=== PATIENT | female | born 1960 | race Caucasian/White ===

== ENCOUNTER 2019-05-31 23:25 | Emergency (ER) | payer OTHER, SELFPAY ==
--- NOTE | ~2019-05-31 | CT_ITS ---
EXAMINATION: CT abdomen pelvis wo con DATE: 05/31/2019 23:51 INDICATION: Abdominal pain TECHNIQUE: Computed tomography (CT) of the abdomen and pelvis was performed without intravenous contr ast. Automated exposure control and iterative reconstruction technique were employed. The dose-length product was 174.22 mGy-cm. COMPARISON: None FINDINGS: Lung bases are clear. Heart size is normal. No pericardial or pleural effusion. Liver, gallbladder, s pleen, pancreas, bilateral adrenal glands and kidneys are normal. The common bile duct is dilated to 10-11 mm in maximal diameter. No evident obstructing stone or mass or intrahepatic biliary ductal dil ation. Normal gas-filled appendix. There are few scattered colonic diverticula without adjacent infla mmatory change to suggest diverticulitis. Small bowel is normal with no obstruction. Anteverted uteru s and decompressed bladder are unremarkable. Multiple phleboliths in the pelvis. No free intraperiton eal gas or fluid. No pathologically enlarged abdominal or pelvic lymphadenopathy. Small fat-containin g umbilical hernia. Lumbar spondylosis with multilevel mild to moderate disc height loss, severe bila teral facet osteoarthritis and grade 1 anterolisthesis of L3 with respect to both L2 and L4. IMPRESSION: 1. Dilation of the common bile duct to 10-11 mm in diameter but without evident obstructing stone/mas s or intrahepatic biliary ductal dilation. Correlate with liver function tests and consider further e valuation with MRCP. Reviewed, dictated and finalized at location A. 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 Dilation of the common bile duct to 10-11 mm in diameter but without evident obstructing stone/mass or intrahepatic biliary ductal dilation. Correlate with liver function tests and consider further evaluation with MRCP.
[2019-06-01] VITALS: BP 149/91; PULSE 93; RESP 18; TEMP 36.5; O2SAT 97
[2019-06-01 00:04] LABS: Hematocrit 37.7 % (35.0-49.0); Hemoglobin 12.7 g/dL (12.0-15.0); Mean Corpuscular HGB Conc 33.7 g/dL (32.0-36.0); Mean Corpuscular Hemoglobin 31.5 pg (27.0-31.0); Mean Corpuscular Volume 93.5 fL (78.0-102.0); Mean Platelet Volume 8.8 fl (9.2-11.8); Platelet Count Result 286 K/mm3 (150-420); Red Blood Count 4.03 M/mm3 (4.20-5.40); Red Cell Distribution Width 14.1 % (11.6-14.4); White Blood Count 13.5 K/mm3 (4.8-10.8)
[2019-06-01 00:07] LABS: Add Urine Microscopic? YES; Appearance Urine Clear (Clear); Bilirubin Urine 1+ (Negative); Blood Urine 2+ (Negative); Color Urine Yellow (Yellow); Glucose Urine UA Negative (Negative); Ketones Urine 2+ (Negative); Leukocyte Esterase Ur Negative (Negative); Nitrate Urine Negative (Negative); Protein Urine Trace (Negative); Specific Grav Ur >= 1.030 (1.010-1.020); Urobilinogen Urine 0.2 mg/dL (0.2-1.0)
[2019-06-01 00:15] LABS: Squamous Epithelial Cell Urine Rare /hpf (Few); WBC Urine 0-3 /hpf (0-3)
[2019-06-01 00:18] LABS: Bacteria Urine Trace /hpf
[2019-06-01 00:27] LABS: Alanine Aminotransferase 91 U/L (14-59); Albumin Level 4.5 g/dL (3.4-5.0); Alkaline Phosphatase 123 U/L (46-116); Anion Gap 16.9 mmol/L (7-16); Aspartate Amino Transferase 147 U/L (15-37); Bilirubin,Total 0.5 mg/dL (0.00-1.00); Blood Urea Nitrogen 18 mg/dL (7-18); Calcium 8.9 mg/dL (8.5-10.1); Carbon Dioxide 22 mmol/L (21-32); Chloride 101 mmol/L (98-108); Estimated Glomerular Filt Rate > 60; Glucose 98 mg/dL (70-99); Osmolality Calculated 283 mOsm/kg (285-295); Potassium 3.9 mmol/L (3.5-5.1); Sodium 136 mmol/L (136-145); Total Protein 8.3 g/dL (6.4-8.2)
[2019-06-01 00:30] LABS: Lipase 53 U/L (73-393)
[2019-06-01] MEDS: KETOROLAC (*BKC) 60 MG/2 ML VIAL IM (00:37)
[2019-06-01 00:56] VITALS: BP 135/82; PULSE 85; RESP 20; O2SAT 97
--- NOTE | 2019-06-01 00:58 | ED.BACK ---
HPI - Back Pain/Injury General Chief Complaint: Back Pain/Injury Stated Complaint: Lower abdominal pain and back pain Source: patient Mode of arrival: ambulatory History of Present Illness HPI Narrative: This 58-year-old female with history of chronic back pain and is on narcotic pain medication had increasing left lower back pain radiating into her lower abdomen on the left with no right upper quadrant pain or discomfort some nausea with no vomiting currently no dysuria no hematuria no fever chills no chest pain or shortness of breath. MD elicited complaint: back pain Onset (ago): week(s) Timing: intermittent Severity: moderate Pain scale (0-10): 6 Similar Symptoms Previously: Yes Quality: sharp and spasming Location: lumbar spine Radiation: abdomen Exacerbating factors: movement Relieving factors: immobilization Context: while lifting, turning/twisting and bending Associated symptoms: denies other symptoms Related Data Home Medications Medication Instructions Recorded Confirmed conjugated estrogens 1.25 mg PO DAILY 06/01/19 06/01/19 hydrocodone-acetaminophen [[place]] 1 tablet PO BID PRN 06/01/19 06/01/19 Allergies Allergy/AdvReac Type Severity Reaction Status Date / Time No Known Allergies Allergy Verified 05/01/19 09:35 Review of Systems Review of Systems: All systems reviewed & are unremarkable except as noted in HPI and below PMFSH Past Medical History Medical History Chronic low back pain Family History Family History Mother Hypertension Family history of congestive heart failure Sibling Family history of malignant neoplasm Other Cerebrovascular accident Social History Social History Smoking status: Heavy tobacco smoker Alcohol intake: never Gender identity (if verbalized by the patient): Female Exam Const: General: no acute distress Orientation/consciousness: patient oriented x3 HENMT: Head: normal to inspection Eyes: Conjunctivae: conjunctivae normal Pupils: Equal, round and reactive pupils present Neck: Neck: normal visual inspection Chest: Chest palpation & inspection: normal inspection of the chest Resp: Effort & Inspection: normal respiratory effort Cardio: Rate: regular rate Rhythm: regular rhythm GI: Auscultation: normal bowel sounds : General: Yes no CVA tenderness Back/Spine/Pelvis: Back: no CVA tenderness Other: L4 and 5 left paravertebral tenderness with palpation positive straight leg raising test Skin: General skin exam: normal color Rashes: no rashes Extrem: General: normal to inspection Course Vital Signs Vital signs: Vital Signs Temperature 36.5 C 06/01/19 00:00 Pulse Rate 93 06/01/19 00:00 Respiratory Rate 18 06/01/19 00:00 Blood Pressure 149/91 H 06/01/19 00:00 Pulse Oximetry 97 06/01/19 00:00 Temperature 36.5 C 06/01/19 00:00 Pulse Rate 85 06/01/19 00:56 Respiratory Rate 20 06/01/19 00:56 Blood Pressure 135/82 06/01/19 00:56 Pulse Oximetry 97 06/01/19 00:56 MDM - Back Pain/Injury Lab Data Attestation: I reviewed the patient's lab results. Result diagrams: 05/31/19 23:58 05/31/19 23:58 Labs: Lab Results 05/31/19 05/31/19 05/31/19 Range/Units 23:53 23:58 23:58 WBC 13.5 H (4.8-10.8) K/mm3 RBC 4.03 L (4.20-5.40) M/mm3 Hgb 12.7 (12.0-15.0) g/dL Hct 37.7 (35.0-49.0) % MCV 93.5 (78.0-102.0) fL MCH 31.5 H (27.0-31.0) pg MCHC 33.7 (32.0-36.0) g/dL RDW 14.1 (11.6-14.4) % Plt Count 286 (150-420) K/mm3 MPV 8.8 L (9.2-11.8) fl Sodium 136 (136-145) mmol/L Potassium 3.9 (3.5-5.1) mmol/L Chloride 101 (98-108) mmol/L Carbon Dioxide 22 (21-32) mmol/L Anion Gap 16.9 H (7-16) mmol/L BUN 18 (7-18) mg/dL Creatinine 0.93
== END 2019-06-01 01:09 | disposition home or self-care (01) ==
PROVIDERS: Emergency Provider Emergency Medicine
DX: S39.012A Strain of muscle, fascia and tendon of lower back, initial encounter (principal); N30.00 Acute cystitis without hematuria; F17.200 Nicotine dependence, unspecified, uncomplicated
CPT/HCPCS: 36415; 74176; 80053; 81001; 83690; 85027; 96372; 99283; 99284; J1885

== ENCOUNTER 2019-12-27 17:19 | Emergency (ER) | payer OTHER, SELFPAY ==
[2019-12-27 17:27] VITALS: BP 133/94; PULSE 102; RESP 16; TEMP 36.8; O2SAT 100
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
== END 2019-12-27 18:03 | disposition home or self-care (01) ==
PROVIDERS: Emergency Provider Nurse Practitioner Family; PCP Physician Assistant
DX: T65.891A Toxic effect of other specified substances, accidental (unintentional), initial encounter (principal); T22.511A Corrosion of first degree of right forearm, initial encounter; Y99.0 Civilian activity done for income or pay; F17.210 Nicotine dependence, cigarettes, uncomplicated
CPT/HCPCS: 99211; G0463

== ENCOUNTER 2020-04-23 16:37 | Outpatient (CLI) | payer OTHER, SELFPAY ==
[2020-04-23 17:15] LABS: SARS-CoV-2 Ag Negative (Negative)
== END 2020-04-23 16:38 | disposition home or self-care (01) ==
LOC: CHSLAB 16:40
PROVIDERS: PCP Physician Assistant; Visit Provider Physician Assistant
DX: Z20.828 Contact with and (suspected) exposure to other viral communicable diseases (principal)
CPT/HCPCS: 87426

== ENCOUNTER 2020-12-24 12:58 | Emergency (ER) | payer OTHER, SELFPAY ==
--- NOTE | ~2020-12-24 | XR_ITS ---
EXAMINATION: XR chest 2V EXAM DATE: 12/24/2020 13:28 INDICATION: Cough with diminished breath sounds. TECHNIQUE: Frontal and lateral projections of the chest obtained and reviewed. There is no prior jose luis dy for comparison. FINDINGS: The lungs are clear. There are no pleural effusions. The cardiomediastinal silhouette is within normal limits. There is no pneumothorax suspected. The bones and soft tissues are unremarkab le. IMPRESSION: No acute cardiopulmonary findings. Reviewed, dictated and finalized at location B.
[2020-12-24 13:02] VITALS: BP 126/61; PULSE 98; RESP 14; TEMP 37.2; O2SAT 99
--- NOTE | 2020-12-24 13:12 | ED.URI ---
HPI - URI/Sore Throat General Chief Complaint: Upper Respiratory Infection Stated Complaint: cough congestion and hurts to breathe Time Seen by Provider: 12/24/20 13:12 Source: patient and RN notes reviewed Mode of arrival: ambulatory Limitations: no limitations History of Present Illness HPI Narrative: 60-year-old female presents with concern for cough, chest congestion. Denies significant medical history, reports history of musculoskeletal injuries and surgeries, problems with gallbladder. Reports quit smoking 2 years ago after a 20-year habit of quarter pack per day. She reports 4-day history of cough with upper back pain/burning with coughing. Reports stuffy nose, fatigue, body aches, general malaise. She denies fever, ear pain, sore throat. Reports taking fadn-kjz-sqnuzpt cold medicines with little relief. She reports she has been asked for Covid. She denies any known sick contacts. 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 MD elicited complaint: cough Related Data Home Medications Medication Instructions Recorded Confirmed cyclobenzaprine [Flexeril] 10 mg PO HS 12/24/20 12/24/20 hydrocodone-acetaminophen [Vicodin] 1 tablet PO Q6H PRN 12/24/20 12/24/20 Allergies Allergy/AdvReac Type Severity Reaction Status Date / Time No Known Allergies Allergy Verified 12/24/20 13:15 Review of Systems Review of Systems: CONSTITUTIONAL: Reports malaise, fatigue. Denies chills, sweats, or fever. EYES: Denies visual changes, redness, or discharge. ENT: Reports rhinorrhea, congestion. Denies sinus pain, otalgia and sore throat. CARDIOVASCULAR: Denies chest pain, palpitations, or edema. RESPIRATORY: Reports cough, chest burning with coughing. Denies dyspnea. GASTROINTESTINAL: Denies abdominal pain, nausea, vomiting, diarrhea SKIN: Denies rash or itching. MUSCULOSKELETAL: Reports myalgia. Reports upper back pain NEUROLOGIC: Denies headache. All systems reviewed & are unremarkable except as noted in HPI and below PMFSH Past Medical History Medical History (Updated 12/24/20 @ 13:37 by Inez Mora NP) delivery delivered Chronic low back pain Surgical History Surgical History (Updated 12/27/19 @ 17:33 by RM Trejo) H/O section X4 History of knee surgery Family History Family History (Updated 12/28/19 @ 01:24 by RM Trejo) Mother Hypertension Family history of congestive heart failure Sibling Family history of malignant neoplasm Father , 12/12 at age 93, old age Early stage macular hole Old age Other Cerebrovascular accident Social History Social History (Updated 12/28/19 @ 01:21 by RM Trejo) Smoking packs per day: 0.25 Smoking cigarettes per day: 5.0 Years smoked: 20 Smoking pack-years: 5.00 Smoking status: Current every day smoker Tobacco type: cigarettes Second hand tobacco smoke exposure: No Alcohol intake: never Substance use: never Gender identity (if verbalized by the patient): Female Sexual Orientation (if Verbalized by the Patient): Straight or Heterosexual Comments At time of signature, agree with nursing past medical, surgical, social and family history. There is no relevant family history pertinent to the presenting complaint Exam Narrative: GENERAL: Well-appearing, well-nourished, and in no acute distress. HEAD: Normocephalic EYES: PERRLA, conjunctivae clear ENT: Nares clear. Mucous membranes moist. TM pearly shin with dull light reflex bilaterally; no tragal tenderness. Oropharynx not erythematous without lesions. Tonsils not enlarged and without exudate, no drooling, no hoarseness, no trismus, uvula midline. NECK: Supple. No lymphadenopathy CHEST: Clear to auscultation, diminished right upper lobe. No wheezing, rhonchi, rales, or stridor. No respiratory distress, speaks in full sentences. HEART: Regular rate and rhythm. No murmur heard. SKIN: Warm, dry, no rash.
[2020-12-25 19:18] LABS: SARS-CoV-2 RNA PCR Negative
== END 2020-12-24 13:49 | disposition home or self-care (01) ==
PROVIDERS: Emergency Provider Nurse Practitioner; PCP Physician Assistant
DX: J40 Bronchitis, not specified as acute or chronic (principal); Z20.822 Contact with and (suspected) exposure to COVID-19
CPT/HCPCS: 71046; 87426; 99213; C9803; G0463; U0003; U0005

== ENCOUNTER 2021-08-08 11:58 | Emergency (ER) | payer OTHER, SELFPAY ==
--- NOTE | ~2021-08-08 | XR_ITS ---
EXAMINATION: XR cervical spine 4-5V DATE: 08/08/2021 12:31 INDICATION: Right lateral neck pain. TECHNIQUE: 5 views of cervical spine were obtained. COMPARISON: None. FINDINGS: There is 2 mm retrolisthesis of C4 on C5, C5 on C6, and C6 on C7. Vertebral body heights ar e normal. There is severely decreased disc height at C4-C5 and C5-C6 and moderately decreased disc he ight at C6-C7 with endplate remodeling. There is multilevel uncovertebral joint osteoarthritis, sever e bilaterally from C4-C5 through C6-C7. There is multilevel mild facet joint osteoarthritis. There is mild central canal stenosis at C4-C5, C5-C6, and C6-C7. No prevertebral soft tissue swelling. IMPRESSION: 1. Severe cervical spondylosis. Reviewed, dictated and finalized at location A.
[2021-08-08 12:08] VITALS: BP 153/85; PULSE 85; RESP 18; TEMP 36.9; O2SAT 100
--- NOTE | 2021-08-08 12:18 | ED.NECK ---
HPI - Neck Pain/Injury General Chief Complaint: Neck Pain/Injury Stated Complaint: Neck Pain Time Seen by Provider: 08/08/21 12:18 Source: patient Mode of arrival: ambulatory Limitations: no limitations History of Present Illness HPI Narrative: 60-year-old female presented for complaint of neck pain for 10days, causing decreased ROM and headache. 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 States when she turned her head to put on seatbelt the pain started. Endorses chronic numbness and tingling to the right upper extremity due to pinched nerve and hx of injections to neck 20 years ago. Endorses chronic low back pain and multiple surgeries, and has taken hydrocodone which does not help. Related Data Home Medications Medication Instructions Recorded Confirmed hydrocodone-acetaminophen 1 tablet PO Q8H 08/08/21 08/08/21 Allergies Allergy/AdvReac Type Severity Reaction Status Date / Time No Known Allergies Allergy Verified 08/08/21 12:14 Review of Systems Review of Systems: CONSTITUTIONAL: Denies body aches, fever, chills, or sweats. EYES: Denies visual changes, redness, or discharge. ENT: Denies rhinorrhea, congestion, sore throat, or otalgia. CARDIOVASCULAR: Denies chest pain, palpitations, or edema. RESPIRATORY: Denies cough or dyspnea. GASTROINTESTINAL: Denies abdominal pain, nausea, vomiting, or diarrhea. GENITOURINARY: Denies dysuria or hematuria. SKIN: Denies rash, itching, or wounds. MUSCULOSKELETAL: Reports neck pain NEUROLOGIC: reports headache, numbness, tingling to RUE PSYCH: Denies depression or anxiety. All systems reviewed & are unremarkable except as noted in HPI and below PMFSH Past Medical History Medical History delivery delivered Chronic low back pain Surgical History Surgical History H/O section X4 History of knee surgery Family History Family History Mother Hypertension Family history of congestive heart failure Sibling Family history of malignant neoplasm Father , 12/12 at age 93, old age Early stage macular hole Old age Other Cerebrovascular accident Social History Social History Smoking packs per day: 0.25 Smoking cigarettes per day: 5.0 Years smoked: 20 Smoking pack-years: 5.00 Smoking status: Current every day smoker Tobacco type: cigarettes Second hand tobacco smoke exposure: No Alcohol intake: never Substance use: never Gender identity (if verbalized by the patient): Female Sexual Orientation (if Verbalized by the Patient): Straight or Heterosexual Comments At time of signature, I have reviewed and agree with nursing past medical, surgical, social and family history unless otherwise noted. Please see nursing chart for further information. There is no relevant family history pertinent to the presenting complaint Exam Narrative: GENERAL: Appears in pain HEAD: Normocephalic, atraumatic. EYES: EOMI. PERRLA. No redness or drainage. Conjunctivae normal. ENT: Mucous membranes pink and moist. No rhinorrhea. NECK: Pain with AROM, limited ROM in all directions, tender to cervical paraspinal muscles, no vertebral point tenderness. CHEST: No respiratory distress. Clear to auscultation. HEART: Regular rate and rhythm. No murmur appreciated. Normal peripheral pulses. ABDOMEN: Soft, nontender, nondistended, normal active bowel sounds. MUSCULOSKELETAL: No bony tenderness. EXTREMITIES: limited range of motion to upper ext's. 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 No edema. SKIN: Warm, dry, no rash. Capillary refill normal. Normal skin turgor. NEURO: No focal deficits. Alert and oriented x3. Gait steady. PSYCH: Normal affect. No signs of depression or anxiety. Cou
== END 2021-08-08 13:05 | disposition home or self-care (01) ==
PROVIDERS: Emergency Provider Nurse Practitioner Family; PCP Physician Assistant
DX: M54.2 Cervicalgia (principal); F17.210 Nicotine dependence, cigarettes, uncomplicated
CPT/HCPCS: 72050; 99213; G0463

== ENCOUNTER 2021-12-21 10:32 | Emergency (ER) | payer OTHER, SELFPAY ==
--- NOTE | ~2021-12-21 | CT_ITS ---
EXAMINATION: CT abdomen pelvis w con DATE: 12/21/2021 12:09 INDICATION: Abdominal pain, nausea and vomiting TECHNIQUE: Computed tomography (CT) of the abdomen and pelvis was performed with 100 mL Omnipaque-350 intravenous contrast. Automated exposure control and iterative reconstruction technique were employe d. The dose-length product was 180.80 mGy-cm. COMPARISON: 05/31/2019 FINDINGS: Mild discoid atelectasis in the right middle and bilateral lower lobes. Heart size is normal. No erich cardial or pleural effusion. Very small region of focal hepatic steatosis at the ligamentum teres. Co mmon bile duct is borderline dilated for age measuring up to 7 mm . There is mild central intrahepati c biliary ductal dilation. The distal common bile duct tapers gradually with no evident obstructing s tone or mass. Gallbladder is normal. Spleen, pancreas, bilateral adrenal glands and kidneys are jessica l. Bladder, anteverted uterus and bilateral adnexa are unremarkable. There are few scattered colonic diverticula without adjacent inflammatory change to suggest diverticulitis. Small bowel and appendix are normal. No free intraperitoneal gas or fluid. No pathologically enlarged abdominal or pelvic lymp hadenopathy. Severe lumbar spondylosis including mild grade 1 anterolisthesis L3 with respect to both L2 and L4. IMPRESSION: 1. Borderline dilation of the common bile duct and mild central intrahepatic biliary ductal dilation without evident obstructing stone or mass. Correlate with liver function tests. No other acute intra- abdominal/pelvic process. Reviewed, dictated and finalized at location A. IMPRESSION: 1. Borderline dilation of the common bile duct and mild central intrahepatic bi liary ductal dilation without evident obstructing stone or mass. Correlate with liver function tests. No other acute intra-abdominal/pelvic process.
--- NOTE | 2021-12-21 10:45 | ECG_ITS ---
Measurements Intervals [place] Rate: 70 P: 62 KS: 159 QRS: 54 QRSD: 84 T: 36 QT: 360 QTc: 391 Interpretive Statements SINUS RHYTHM NORMAL ELECTROCARDIOGRAM NO PREVIOUS ECG AVAILABLE FOR COMPARISON Electronically Signed On 12-21-2021 17:17:06 CDT by Taqueria Garcia M.D.
[2021-12-21 10:59] VITALS: BP 157/91; PULSE 78; RESP 20; TEMP 36.2; O2SAT 97
[2021-12-21 11:18] LABS: Basophils Absolute Auto 0.05 K/mm3 (0.00-0.10); Basophils Percent Auto 0.8 % (0.0-1.0); Eosinophils Absolute Auto 0.08 K/mm3 (0.02-0.50); Eosinophils Percent Auto 1.2 % (1.0-6.0); Hematocrit 39.4 % (35.0-49.0); Hemoglobin 12.9 g/dL (12.0-15.0); Immature Granulocyte Absolute 0.02 K/mm3 (0.00-0.00); Immature Granulocyte Percent A 0.3 % (0.0-0.0); Lymphocytes Absolute Auto 2.14 K/mm3 (1.10-4.50); Lymphocytes Percent Auto 32.4 % (18.0-42.0); Mean Corpuscular HGB Conc 32.7 g/dL (32.0-36.0); Mean Corpuscular Volume 94.7 fL (78.0-102.0); Mean Platelet Volume 9.3 fl (9.2-11.8); Monocytes Absolute Auto 0.45 K/mm3 (0.10-0.90); Monocytes Percent Auto 6.8 % (2.0-11.0); Neutrophils Absolute Auto 3.9 K/mm3 (1.7-7.2); Neutrophils Percent Auto 58.5 % (50.0-70.0); Platelet Count Result 248 K/mm3 (150-420); Red Blood Count 4.16 M/mm3 (4.20-5.40); Red Cell Distribution Width 13.1 % (11.6-14.4); White Blood Count 6.6 K/mm3 (4.8-10.8)
[2021-12-21] MEDS: SODIUM CHLORIDE 0.9% IV 1,000 ML 999 ML IV CONT (11:19)
[2021-12-21] MEDS: MORPHINE SULFATE (*CRX) 4 MG/ML INJ IV PUSH (11:20)
[2021-12-21] MEDS: ONDANSETRON INJ 4 MG/2 ML VIAL IV PUSH (11:20)
[2021-12-21 11:32] LABS: Partial Thromboplastin Time 25.4 SEC (23.90-30.70)
[2021-12-21 11:37] LABS: Alanine Aminotransferase 40 U/L (14-59); Albumin Level 3.5 g/dL (3.4-5.0); Alkaline Phosphatase 102 U/L (46-116); Anion Gap 8 mmol/L (8-16); Aspartate Amino Transferase 21 U/L (15-37); Bilirubin,Total 0.4 mg/dL (0.00-1.00); Blood Urea Nitrogen 7 mg/dL (7-18); Calcium 9.2 mg/dL (8.5-10.1); Carbon Dioxide 26 mmol/L (21-32); Chloride 100 mmol/L (98-108); Estimated Glomerular Filt Rate > 60; Glucose 98 mg/dL (70-99); Lipase 57 U/L (73-393); Osmolality Calculated 276 mOsm/kg (285-295); Potassium 3.8 mmol/L (3.5-5.1); Sodium 134 mmol/L (136-145); Total Protein 6.6 g/dL (6.4-8.2); Troponin I < 4.0 ng/L (0.00-60.4)
--- NOTE | 2021-12-21 12:28 | ED.ABDPAIN ---
HPI - Abdominal Pain General Chief Complaint: Abdominal Pain Stated Complaint: diverticylitis doctor referred Time Seen by Provider: 12/21/21 10:38 Source: patient Mode of arrival: ambulatory History of Present Illness HPI narrative: this is a 61-year-old female has a remote history of diverticulitis presents with one-week history of nausea vomiting and abdominal pain that has progressively gotten worse with some some constipation over the last 3 to 4 days, takes narcotic pain medicine for chronic back pain. Currently there is no fever chills no chest pain no shortness of breath. MD elicited complaint: abdominal pain Onset (ago): day(s) Pain Consistency: intermittent Location: diffuse Severity: moderate Quality: aching Related Data Home Medications Medication Instructions Recorded Confirmed hydrocodone 10 mg-acetaminophen 1 tablet PO Q8H 08/08/21 08/08/21 325 mg tablet Allergies Allergy/AdvReac Type Severity Reaction Status Date / Time No Known Allergies Allergy Verified 12/21/21 11:13 Review of Systems Review of Systems: All systems reviewed & are unremarkable except as noted in HPI and below PMFSH Past Medical History Medical History delivery delivered Chronic low back pain Surgical History Surgical History H/O section X4 History of knee surgery Family History Family History Mother Hypertension Family history of congestive heart failure Sibling Family history of malignant neoplasm Father , 12/12 at age 93, old age Early stage macular hole Old age Other Cerebrovascular accident Social History Social History Smoking packs per day: 0.25 Smoking cigarettes per day: 5.0 Years smoked: 20 Smoking pack-years: 5.00 Smoking status: Current every day smoker Tobacco type: cigarettes Second hand tobacco smoke exposure: No Alcohol intake: never Substance use: never Gender identity (if verbalized by the patient): Female Sexual Orientation (if Verbalized by the Patient): Straight or Heterosexual Exam Const: General: healthy appearing Limitations: no limitations HENMT: Head: normal to inspection Eyes: Conjunctivae: conjunctivae normal Neck: Neck: normal visual inspection, no lymphadenopathy and no meningeal signs Chest: Chest palpation & inspection: normal inspection of the chest Resp: Effort & Inspection: normal respiratory effort Auscultation: clear to auscultation bilaterally Cardio: Rate: regular rate Rhythm: regular rhythm GI: GI Palp: Yes Soft to palpation and Yes Tenderness to palpation present (GI) Auscultation: normal bowel sounds Back/Spine/Pelvis: Back: no CVA tenderness Skin: General skin exam: normal color Rashes: no rashes Wounds: no wounds Neuro: General: patient oriented x3 and moves all extremities Cranial nerves: Yes Nystagmus not present Speech: normal speech Extrem: General: normal to inspection and no clubbing, cyanosis or edema Psych: Mental Status: mental status grossly normal Affect: normal affect Course Course Emergency Course: Reassessment of patient her abdominal pain has improved as well as her nausea and vomiting, the patient had a CT scan that was reviewed with the patient blood work reviewed with patient patient also received IV fluids. Vital Signs Vital signs: Vital Signs Temperature 36.2 C L 12/21/21 10:59 Pulse Rate 78 12/21/21 10:59 Respiratory Rate 12/21/21 10:59 Blood Pressure 157/91 H 12/21/21 10:59 Pulse Oximetry 97 12/21/21 10:59 Oxygen Delivery Room Air 12/21/21 10:59 Temperature 36.2 C L 12/21/21 10:59 Pulse Rate 78 12/21/21 10:59 Respiratory Rate 20 12/21/21 10:59 Blood Pressure 157/91 H 12/21/21 1
[2021-12-21 12:55] VITALS: BP 150/87; PULSE 79; RESP 20; TEMP 36.7; O2SAT 96
== END 2021-12-21 12:58 | disposition home or self-care (01) ==
PROVIDERS: Emergency Provider Emergency Medicine; PCP Physician Assistant
DX: R10.84 Generalized abdominal pain (principal); R11.2 Nausea with vomiting, unspecified
CPT/HCPCS: 36415; 74177; 80053; 83690; 84484; 85025; 85730; 93005; 96361; 96374; 96375; 99284; J2270; J2405; J7030; Q9967

== ENCOUNTER 2022-01-01 14:50 | Emergency (ER) | payer OTHER, SELFPAY ==
[2022-01-01 14:55] VITALS: BP 154/78; PULSE 75; RESP 18; TEMP 37.2; O2SAT 99
--- NOTE | 2022-01-01 15:18 | ED.URI ---
HPI - URI/Sore Throat General Chief Complaint: Upper Respiratory Infection Stated Complaint: sore throat Time Seen by Provider: 01/01/22 15:18 History of Present Illness HPI Narrative: 60-year-old female presented for complaint of sore throat, headache, and fatigue onset yesterday. Endorses this morning while brushing her teeth she noticed spots on her tongue. She denies fever, cough, shortness of breath or vomiting. She quit smoking on 12/18/2021. She has not taken anything for symptoms. Related Data Home Medications Medication Instructions Recorded Confirmed hydrocodone 10 mg-acetaminophen 1 tablet PO Q8H 08/08/21 01/01/22 325 mg tablet meloxicam 15 mg tablet 15 mg PO DAILY 01/01/22 01/01/22 varenicline 1 mg tablet See Rx Instructions .Route .COMPLEX 01/01/22 01/01/22 Allergies Allergy/AdvReac Type Severity Reaction Status Date / Time No Known Allergies Allergy Verified 12/21/21 11:13 Review of Systems Review of Systems: CONSTITUTIONAL: Denies body aches, fever, chills, or sweats. EYES: Denies visual changes, redness, or discharge. ENT: Denies rhinorrhea, congestion, or otalgia. CARDIOVASCULAR: Denies chest pain, palpitations, or edema. RESPIRATORY: Denies dyspnea. GASTROINTESTINAL: Denies abdominal pain, nausea, vomiting, or diarrhea. SKIN: Denies rash, itching, or wounds. [facility] Past Medical History Medical History delivery delivered Chronic low back pain Surgical History Surgical History H/O section X4 History of knee surgery Family History Family History Mother Hypertension Family history of congestive heart failure Sibling Family history of malignant neoplasm Father , 12/12 at age 93, old age Early stage macular hole Old age Other Cerebrovascular accident Social History Social History Smoking packs per day: 0.25 Smoking cigarettes per day: 5.0 Years smoked: 20 Smoking pack-years: 5.00 Smoking status: Current every day smoker Tobacco type: cigarettes Second hand tobacco smoke exposure: No Alcohol intake: never Substance use: never Gender identity (if verbalized by the patient): Female Sexual Orientation (if Verbalized by the Patient): Straight or Heterosexual Exam Narrative: GENERAL: well-appearing EYES: conjunctivae clear ENT: Mucous membranes moist. distal 1/4 of tongue with white irregular flat patches. TMs pearly shin with normal light reflex bilaterally; no tragal tenderness. Oropharynx erythematous without lesions. No drooling, no hoarseness, no trismus, uvula midline. No tripod positioning, hot potato voice, or soft palate swelling. NECK: Supple. No lymphadenopathy CHEST: Clear to auscultation, breath sounds equal. No respiratory distress, speaks in full sentences. HEART: Regular rate and rhythm. No murmur heard. SKIN: Warm, dry, no rash. NEURO: Alert and oriented x3. Course Course Emergency Course: Patient is aware of diagnosis, understands and agrees to treatment plan. Anticipatory guidance given. Patient agrees to follow-up as directed and is aware of reasons to seek care at the emergency department. Portions of this record may have been created with voice recognition software Level of Care: Express Care Visit Vital Signs Vital signs: Vital Signs Temperature 98.9 F 01/01/22 14:55 Pulse Rate 75 01/01/22 14:55 Respiratory Rate 18 01/01/22 14:55 Blood Pressure 154/78 H 01/01/22 14:55 Pulse Oximetry 99 01/01/22 14:55 Oxygen Delivery Room Air 01/01/22 14:55 Temperature 98.9 F 01/01/22 14:55 Pulse Rate 75 01/01/22 14:55 Respiratory Rate 18 01/01/22 14:55 Blood Pressure 154/78 H 01/01/22 14:55 Pulse Oximetry 99 01/01/22 14
== END 2022-01-01 15:45 | disposition home or self-care (01) ==
PROVIDERS: Emergency Provider Nurse Practitioner Family; PCP Physician Assistant
DX: J06.9 Acute upper respiratory infection, unspecified (principal); Z20.822 Contact with and (suspected) exposure to COVID-19; Z87.891 Personal history of nicotine dependence
CPT/HCPCS: 87081; 87426; 87880; 99213; C9803; G0463

== ENCOUNTER 2023-01-15 09:38 | Emergency (ER) | payer OTHER, SELFPAY ==
[2023-01-15 10:03] VITALS: BP 125/74; PULSE 96; TEMP 36.6; O2SAT 100
[2023-01-15 10:06] VITALS: RESP 16
--- NOTE | 2023-01-15 10:19 | ED.BACK ---
HPI - Back Pain/Injury General Chief Complaint: Back Pain/Injury Stated Complaint: back pain Time Seen by Provider: 01/15/23 09:44 Source: patient Mode of arrival: ambulatory Limitations: no limitations History of Present Illness HPI Narrative: 62-year-old female presents to [facility] with complaints of right lower back pain radiating to her right leg for the past 4 days. 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 Patient has been resting, taking Aleve and Tylenol with minimal relief. Patient reports intermittent tingling to her toes. Patient reports long history of chronic back pain and has seen pain management in the past. Patient reports that she has had and 9 knee surgeries in the past. MD elicited complaint: back pain Pertinent past history: prior back pain Onset (ago): day(s) (4) Similar Symptoms Previously: Yes Quality: dull Location: right lower back Radiation: right upper leg Associated symptoms: denies other symptoms Treatments prior to arrival: NSAIDS Related Data Allergies Allergy/AdvReac Type Severity Reaction Status Date / Time No Known Allergies Allergy Verified 12/21/21 11:13 Review of Systems Constitutional: Constitutional: Denies chills, Denies fatigue, Denies fever(s) and Denies weakness ENT: Denies vertigo and Denies dizziness Cardiovascular: Cardiovascular: Denies chest pain Respiratory: Respiratory: Denies cough, Denies dyspnea and Denies wheezing Gastrointestinal: Gastrointestinal: Denies diarrhea, Denies nausea and Denies vomiting Genitourinary: Genitourinary: Denies hematuria, Denies dysuria and Denies flank pain Musculoskeletal: Musculoskeletal: Reports back pain, Denies myalgias and Denies joint swelling Integumentary/Breasts: Skin/Breast: Denies pruritus and Denies rash Neurologic: Denies dizziness, Denies syncope and Denies headache(s) [facility] Past Medical History Medical History delivery delivered Chronic low back pain Surgical History Surgical History H/O section X4 History of knee surgery Family History Family History Mother Hypertension Family history of congestive heart failure Sibling Family history of malignant neoplasm Father , 12/12 at age 93, old age Early stage macular hole Old age Other Cerebrovascular accident Social History Social History Smoking packs per day: 0.25 Smoking cigarettes per day: 5.0 Years smoked: 20 Smoking pack-years: 5.00 Smoking status: Current every day smoker Tobacco type: cigarettes Second hand tobacco smoke exposure: No Alcohol intake: never Substance use: never Living arrangements: with family Occupation/Education: occupation Gender identity (if verbalized by the patient): Female Sexual Orientation (if Verbalized by the Patient): Straight or Heterosexual Comments At time of signature, I agree with nursing past medical, surgical, social and family history. There is no relevant family history pertinent to the presenting complaint. Exam Const: General: healthy appearing and no acute distress Nutritional Appearance: well nourished Orientation/consciousness: patient oriented x3 Limitations: no limitations HENMT: Head: normal to inspection Eyes: Conjunctivae: conjunctivae normal Neck: Neck: normal visual inspection Resp: Effort & Inspection: normal respiratory effort and not labored Auscultation: clear to auscultation bilaterally, no crackles, no rales, no rhonchi and no wheezes Cardio: Rate: regular rate Rhythm: regular rhythm Heart sounds: no murmurs GI: GI Palp: Yes Soft to pal
== END 2023-01-15 10:30 | disposition home or self-care (01) ==
PROVIDERS: Emergency Provider Nurse Practitioner Family; PCP Physician Assistant
DX: M54.41 Lumbago with sciatica, right side (principal); F17.210 Nicotine dependence, cigarettes, uncomplicated
CPT/HCPCS: 99213; G0463

== ENCOUNTER 2023-07-04 19:27 | Emergency (ER) | payer OTHER, SELFPAY ==
--- NOTE | ~2023-07-04 | XR_ITS ---
EXAM: XR shoulder RT min 2V DATE: 07/04/2023 20:18 HISTORY: rt shoulder pain, injury . COMPARISON: 03/04/2010. FINDINGS: Decreased mineralization. No fracture or dislocation. No lytic or blastic lesion. Severe a cromioclavicular and glenohumeral osteoarthritis. No erosion or periosteal change. Soft tissues withi n normal limits. IMPRESSION: No acute osseous finding in the right shoulder. Reviewed, dictated and finalized at location K.
--- NOTE | 2023-07-04 19:30 | ED.UPPEXIN ---
HPI - Extremity Injury (Upper) General Chief Complaint: Extremity Injury, Upper Stated Complaint: Right Shoulder Pain Time Seen by Provider: 07/04/23 19:31 Source: patient Mode of arrival: ambulatory Limitations: no limitations History of Present Illness HPI narrative: Alpa is a 62-year-old female patient presenting to the clinic today with complaints right shoulder pain x2 days. She reports shoulder pain started on Tuesday when she was reaching to put on her seatbelt she felt a pop and some grinding sensation in the right shoulder. She feels as though her shoulder may be dislocated. Related Data Allergies Allergy/AdvReac Type Severity Reaction Status Date / Time No Known Allergies Allergy Verified 12/21/21 11:13 Review of Systems Review of Systems: Pertinent positives per HPI. Patient denies any fever, chills, rash, headache, visual changes, dizziness, cough, shortness of breath, chest pain, palpitations, nausea, vomiting, diarrhea, constipation, abdominal pain, or any urinary issues. [facility] Past Medical History Medical History delivery delivered Chronic low back pain Surgical History Surgical History H/O section X4 History of knee surgery Family History Family History Mother Hypertension Family history of congestive heart failure Sibling Family history of malignant neoplasm Father , 12/12 at age 93, old age Early stage macular hole Old age Other Cerebrovascular accident Social History Social History Smoking packs per day: 0.25 Smoking cigarettes per day: 5.0 Years smoked: 20 Smoking pack-years: 5.00 Smoking status: Current every day smoker Tobacco type: cigarettes Second hand tobacco smoke exposure: No Alcohol intake: never Substance use: never Living arrangements: with family Occupation/Education: occupation Gender identity (if verbalized by the patient): Female Sexual Orientation (if Verbalized by the Patient): Straight or Heterosexual Comments At the time of my signature, I reviewed and agree with the nursing past medical, surgical, social, and family history. There is no relevant family history pertinent to the patient complaint. Exam Narrative: General: Well-developed, well nourished, in no apparent distress Head: Normocephalic, atraumatic. Cardio: Regular rate and rhythm, s1 and s2 normal, no murmur appreciated. Resp: Clear to auscultation bilaterally, no rhonchi, rales, wheezing or rubs. Musculoskeletal: No deformity, tender to palpation over the anterior shoulder, pain with empty can and full can test over the anterior shoulder-over the supraspinatus tendon, unable to lift arm above head without significant pain, Shen test positive, muscle strength strong and equal, peripheral pulse strong, no edema, no cyanosis, normal gait and station Course Course Emergency Course: Portions of this record may have been created with voice recognition software. Level of Care: Express Care Visit Vital Signs Vital signs: Vital signs reviewed MDM - Extremity Injury (Upper) MDM Narrative Medical decision making narrative: At the time of visit patient is resting comfortably on the exam table. Patient appears to be nontoxic. Diagnostics: Right shoulder x-ray was performed. X-ray shows severe AC joint and glenohumeral osteoarthritis. No fracture or malalignment Plan: I suspect patient has a supraspinatus sprain/osteoarthritis of the right shoulder. Will place patient on Medrol Dosepak. Arm sling was given. Supportive measures were discussed with the patient and they voiced understanding discharge instructions and agrees to treatment plan. Return precautions reviewed Differenti
[2023-07-04 19:45] VITALS: BP 165/75; PULSE 85; RESP 20; TEMP 36.9; O2SAT 98
== END 2023-07-04 20:56 | disposition home or self-care (01) ==
PROVIDERS: Emergency Provider Nurse Practitioner Family
DX: M19.011 Primary osteoarthritis, right shoulder (principal); S46.911A Strain of unspecified muscle, fascia and tendon at shoulder and upper arm level, right arm, initial encounter; X50.9XXA Other and unspecified overexertion or strenuous movements or postures, initial encounter; F17.210 Nicotine dependence, cigarettes, uncomplicated
CPT/HCPCS: 73030; 99213; A4565; G0463

== ENCOUNTER 2023-09-02 12:16 | Emergency (ER) | payer OTHER, SELFPAY ==
--- NOTE | ~2023-09-02 | XR_ITS ---
EXAMINATION: XR abdomen/kub 1V DATE: 09/02/2023 13:18 INDICATION: Left lower abdominal and flank pain. TECHNIQUE: A supine view of the abdomen was obtained. COMPARISON: CT abdomen and pelvis 12/21/2021 FINDINGS: There are no dilated loops of bowel. There is a small volume of stool in the colon. Calcifi cations in the pelvis are likely phleboliths. IMPRESSION: 1. Normal bowel gas pattern. Reviewed, dictated and finalized at location A.
[2023-09-02 12:21] VITALS: BP 143/80; PULSE 125; RESP 18; TEMP 37.4; O2SAT 98
--- NOTE | 2023-09-02 12:23 | PC.NURSE ---
in br to obtain ua spec.
--- NOTE | 2023-09-02 12:33 | ED.BACK ---
HPI - Back Pain/Injury General Chief Complaint: Back Pain/Injury Stated Complaint: Back and left side groin pain Time Seen by Provider: 09/02/23 12:33 Source: patient, RN notes reviewed and old records reviewed Mode of arrival: ambulatory Limitations: no limitations History of Present Illness HPI Narrative: 62 year old female who prsents to express care with complaints of left back pain starting suddenly on Tuesday and today radiating around to her left lower abdomen. Patient reports that she has had back pain before and also had back surgery and this pain is different than any prrevious episodes of her back. Patient denies any burning or pain with urination, denies any urinary frequency or any urgency with her urination.Patient reports that she has been having increased pain since last night.Patient states that it hurts her abdomen more to sit. MD elicited complaint: other (left sided back pain radiating to left lower abdominal quadrant) Onset (ago): day(s) (2) Pain scale (0-10): 5 Quality: sharp and aching Treatments prior to arrival: NSAIDS and acetaminophen Related Data Home Medications Medication Instructions Recorded Confirmed No Home Medications 09/02/23 09/02/23 Allergies Allergy/AdvReac Type Severity Reaction Status Date / Time No Known Allergies Allergy Verified 09/02/23 12:22 Review of Systems Review of Systems: CONSTITUTIONAL: Denies fever, chills, or sweats. ENT: Denies rhinorrhea, congestion, sore throat, or otalgia. CARDIOVASCULAR: Denies chest pain, palpitations, or edema. RESPIRATORY: Denies cough or dyspnea. GASTROINTESTINAL: Reports pain from her left lower back radiating to her left lower abdomen denies any nausea, vomiting or diarrhea. GENITOURINARY: Denies dysuria or hematuria. SKIN: Denies rash or itching. MUSCULOSKELETAL: reports left lower back pain, joint pain, or myalgia. NEUROLOGIC: Denies headache, numbness, or weakness. All systems reviewed & are unremarkable except as noted in HPI and below PMFSH Past Medical History Medical History delivery delivered Chronic low back pain Surgical History Surgical History (Updated 09/04/23 @ 00:13 by Klaudia Sandoval NP) H/O section X4 H/O total knee replacement r-knee History of back surgery History of knee surgery 9 right knee surgeries Family History Family History Mother Hypertension Family history of congestive heart failure Sibling Family history of malignant neoplasm Father , 12/12 at age 93, old age Early stage macular hole Old age Daughter , of cancer No problems noted. Other Cerebrovascular accident Social History Social History Smoking packs per day: 0.25 Smoking cigarettes per day: 5.0 Years smoked: 20 Smoking pack-years: 5.00 Smoking status: Current every day smoker Tobacco type: cigarettes Second hand tobacco smoke exposure: No Alcohol intake: never Substance use: never Substance use type: does not use Do You Feel Safe in your Home?: Yes Lack of Transportation: No Lack of Food: Never True Current Housing: I Have Housing Concerned About Future Housing: No Difficulty Paying Gas/Electric Bills: No Difficulty Paying for Meds: No Currently Unemployed: No Education: High School Diploma/GED Difficulty w/ Childcare or Family Care: No Living arrangements: with family Occupation/Education: occupation Gender identity (if verbalized by the patient): Female Sexual Orientation (if Verbalized by the Patient): Straight or Heterosexual Comments At time of signature, agree with nursing past medical, surgical, social and family history. There is no relevant family history pertinent to the presenting complaint Exam Narrative: GENER
== END 2023-09-02 14:00 | disposition short-term general hospital (02) ==
PROVIDERS: Emergency Provider Registered Nurse
DX: R10.9 Unspecified abdominal pain (principal); R10.32 Left lower quadrant pain; F17.210 Nicotine dependence, cigarettes, uncomplicated; Z96.651 Presence of right artificial knee joint
CPT/HCPCS: 74018; 81003; 87086; 99213; G0463

== ENCOUNTER 2023-09-25 12:59 | Emergency (ER) | payer OTHER, SELFPAY ==
--- NOTE | ~2023-09-25 | XR_ITS ---
XR shoulder LT min 2V 09/25/2023 13:42 Indication: Left shoulder pain Procedure: 4 views left shoulder Comparison: No prior studies for comparison. Findings: There is moderate-severe polyarticular osteoarthritis of the left shoulder. No fracture or traumatic malalignment. No significant soft tissue abnormality. Impression: 1: Moderate-severe polyarticular osteoarthritis. Reviewed, dictated and finalized at location B. Impression: 1: Moderate-severe polyarticular osteoarthritis.
[2023-09-25 13:18] VITALS: BP 139/93; PULSE 93; RESP 18; TEMP 36.9; O2SAT 97
--- NOTE | 2023-09-25 13:19 | ED.UPPEXIN ---
HPI - Extremity Injury (Upper) General Chief Complaint: Extremity Injury, Upper Stated Complaint: Left shoulder pain Source: patient Mode of arrival: ambulatory Limitations: no limitations History of Present Illness HPI narrative: 62 y/o female presented for c/o left shoulder pain x2 days. Endorses injury while at work, says she raised the arm over head pushing a box onto a shelf, when she felt a pop. Has continued to have pain to the front of the shoulder to bicep since. Described as a pulling, rates pain 9/10, endorses limited range of motion at the shoulder. denies numbness, tingling, weakness of left arm. Patient has used tylenol, ibuprofen, and ice. Related Data Allergies Allergy/AdvReac Type Severity Reaction Status Date / Time No Known Allergies Allergy Verified 09/25/23 13:27 Review of Systems Review of Systems: CONSTITUTIONAL: Denies body aches, fever, chills CARDIOVASCULAR: Denies chest pain, palpitations, or edema. RESPIRATORY: Denies cough or dyspnea. SKIN: Denies rash, itching, or wounds. MUSCULOSKELETAL: reports left shoulder pain NEUROLOGIC: Denies headache, numbness, tingling, or weakness. PSYCH: Denies depression or anxiety. All systems reviewed & are unremarkable except as noted in HPI and below PMFSH Past Medical History Medical History delivery delivered Chronic low back pain Surgical History Surgical History H/O section X4 H/O total knee replacement r-knee History of back surgery History of knee surgery 9 right knee surgeries Family History Family History Mother Hypertension Family history of congestive heart failure Sibling Family history of malignant neoplasm Father , 12/12 at age 93, old age Early stage macular hole Old age Daughter , of cancer No problems noted. Other Cerebrovascular accident Social History Social History Smoking packs per day: 0.25 Smoking cigarettes per day: 5.0 Years smoked: 20 Smoking pack-years: 5.00 Smoking status: Current every day smoker Tobacco type: cigarettes Second hand tobacco smoke exposure: No Alcohol intake: never Substance use: never Substance use type: does not use Do You Feel Safe in your Home?: Yes Lack of Transportation: No Lack of Food: Never True Current Housing: I Have Housing Concerned About Future Housing: No Difficulty Paying Gas/Electric Bills: No Difficulty Paying for Meds: No Currently Unemployed: No Education: High School Diploma/GED Difficulty w/ Childcare or Family Care: No Living arrangements: with family Occupation/Education: occupation Gender identity (if verbalized by the patient): Female Sexual Orientation (if Verbalized by the Patient): Straight or Heterosexual Comments At time of signature, I have reviewed and agree with nursing past medical, surgical, social and family history unless otherwise noted. Please see nursing chart for further information. There is no relevant family history pertinent to the presenting complaint Exam Narrative: GENERAL: Well-appearing CHEST: Speaks in full sentences. No respiratory distress. HEART: Regular rate and rhythm. Normal and equal peripheral pulses. EXTREMITIES: Left shoulder with point tenderness to anterior deltoid. Limited range of motion at shoulder endorses pain with movement , cannot tolerate more than 70degree abduction. Left hand has normal strength and sensation, No edema or ecchymosis, No open wounds, or obvious deformity; alignment normal, pulse palpable and equal bilaterally, skin warm, dry, pink. Capillary refill less than 3 seconds. SKIN: Warm, dry NEURO: Alert and oriented x3. PSYCH: Normal mood and affect
== END 2023-09-25 14:03 | disposition home or self-care (01) ==
PROVIDERS: Emergency Provider Nurse Practitioner Family
DX: M25.512 Pain in left shoulder (principal); F17.210 Nicotine dependence, cigarettes, uncomplicated; Z96.651 Presence of right artificial knee joint
CPT/HCPCS: 73030; 99213; G0463

== ENCOUNTER 2023-10-20 19:35 | Emergency (ER) | payer OTHER, SELFPAY ==
[2023-10-20 19:47] VITALS: BP 151/80; PULSE 93; RESP 16; TEMP 36.6; O2SAT 100
--- NOTE | 2023-10-20 19:51 | ED.GENADULT ---
HPI - General Adult General Chief complaint: Extremity Injury, Upper Stated complaint: Shoulder Pain Time Seen by Provider: 10/20/23 19:51 Source: patient, RN notes reviewed and old records reviewed Mode of arrival: ambulatory Limitations: no limitations History of Present Illness HPI narrative: 62 year old female who presents to [facility] with complaints of continued left shoulder pain and upper arm pain. Patient was seen in clinic the 24 of September for same complaint and x-ray of left shoulder was completed at that time showing moderate to severe polyarticular osteoarthritis of left shoulder. Patient was referred to Dr Martins and patient states that she saw him for her right shoulder and received an injection and does not want to see him again she did not like him. She reports that has to be something beside surgery that can be done for her shoulders she has to work, she has bills that have to be paid and can't take off time from work. complaint: continued left shoulder pain Onset (ago): week(s) (acute pain for almost a month) Location: left and upper extremity (shoulder and upper arm) Severity: severe Severity scale (1-10): 8 Quality: sharp Pain Consistency: constant Exacerbating factors: movement Treatments prior to arrival: NSAID, cold therapy and other (Tylenol) Related Data Allergies Allergy/AdvReac Type Severity Reaction Status Date / Time No Known Allergies Allergy Verified 10/20/23 19:43 Review of Systems Review of Systems: CONSTITUTIONAL: Denies fever, chills, or sweats. EYES: Denies visual changes, redness, or discharge. ENT: Denies rhinorrhea, congestion, sore throat, or otalgia. CARDIOVASCULAR: Denies chest pain, palpitations, or edema. RESPIRATORY: Denies cough or dyspnea. GASTROINTESTINAL: Denies abdominal pain, nausea, vomiting, or diarrhea. GENITOURINARY: Denies dysuria or hematuria. SKIN: Denies rash or itching. MUSCULOSKELETAL: Chronic lower back pain, positive for left shoulder and upper arm pain, or myalgia. NEUROLOGIC: Denies headache, numbness, or weakness. PSYCHIATRIC: Denies anxiety or depression, anxious. All systems reviewed & are unremarkable except as noted in HPI and below PMFSH Past Medical History Medical History delivery delivered Chronic low back pain Surgical History Surgical History H/O section X4 H/O total knee replacement r-knee History of back surgery History of knee surgery 9 right knee surgeries Family History Family History Mother Hypertension Family history of congestive heart failure Sibling Family history of malignant neoplasm Father , 12/12 at age 93, old age Early stage macular hole Old age Daughter , of cancer No problems noted. Other Cerebrovascular accident Social History Social History Smoking packs per day: 0.25 Smoking cigarettes per day: 5.0 Years smoked: 20 Smoking pack-years: 5.00 Smoking status: Current every day smoker Tobacco type: cigarettes Second hand tobacco smoke exposure: No Alcohol intake: never Substance use: never Substance use type: does not use Do You Feel Safe in your Home?: Yes Lack of Transportation: No Lack of Food: Never True Current Housing: I Have Housing Concerned About Future Housing: No Difficulty Paying Gas/Electric Bills: No Difficulty Paying for Meds: No Currently Unemployed: No Education: High School Diploma/GED Difficulty w/ Childcare or Family Care: No Living arrangements: with family Occupation/Education: occupation Gender identity (if verbalized by the patient): Female Sexual Orientation (if Verbalized by the Patient): Straight or Heterosexual Comments At time o
== END 2023-10-20 20:16 | disposition home or self-care (01) ==
PROVIDERS: Emergency Provider Registered Nurse
DX: M25.512 Pain in left shoulder (principal); M19.012 Primary osteoarthritis, left shoulder; F17.210 Nicotine dependence, cigarettes, uncomplicated; Z96.651 Presence of right artificial knee joint
CPT/HCPCS: 99213; G0463

== ENCOUNTER 2024-01-26 11:34 | Emergency (ER) | payer OTHER, SELFPAY ==
--- NOTE | 2024-01-26 11:44 | ED.URI ---
HPI - URI/Sore Throat General Chief Complaint: Upper Respiratory Infection Stated Complaint: sinus/congestion Time Seen by Provider: 01/26/24 11:45 Source: patient, RN notes reviewed and old records reviewed Mode of arrival: ambulatory Limitations: no limitations History of Present Illness HPI Narrative: 63 year old female who presents to the [facility] care with complaints of 2 week duration of congestion with productive cough of greenish tinged phlegm, sinus congestion and drainage. Patient reports that he has had sinus pressure and headache discomfort also. Patient reports that she has been taking Mucinex, Sudafed, Zyrtec D and rosie seltzer plus for her symptoms. Patient reports that she has not had any known fevers, body aches, no ear pain or any dyspnea. MD elicited complaint: cough, rhinorrhea, nasal congestion, sinus pain and other (headache) Onset (ago): day(s) (14) Severity: moderate Description of mucous: green Able to tolerate fluids by mouth: Yes Treatments prior to arrival: other (rosie seltzer plus, Mucinex, Sudafed, and Zyrtec D) Related Data Allergies Allergy/AdvReac Type Severity Reaction Status Date / Time No Known Allergies Allergy Verified 01/26/24 11:51 Review of Systems Review of Systems: CONSTITUTIONAL:Reports malaise, no chills, sweats, or fever. EYES: Denies visual changes, redness, or discharge. ENT: Reports rhinorrhea, congestion, sinus pain, no otalgia and no sore throat. CARDIOVASCULAR: Denies chest pain, palpitations, or edema. RESPIRATORY: Reports productive cough.? Denies dyspnea. GASTROINTESTINAL: Denies abdominal pain, nausea, vomiting, diarrhea SKIN: Denies rash or itching. MUSCULOSKELETAL: Denies myalgia. NEUROLOGIC:Reports headache. All systems reviewed & are unremarkable except as noted in HPI and below PMFSH Past Medical History Medical History delivery delivered Chronic low back pain Fracture of right shoulder Rheumatoid arthritis Surgical History Surgical History H/O section X4 H/O total knee replacement r-knee H/O tubal ligation History of back surgery History of knee surgery 9 right knee surgeries History of vascular surgery repair of injury to femoral artery Family History Family History Mother Hypertension Family history of congestive heart failure Sibling Family history of malignant neoplasm Father , 12/12 at age 93, old age Early stage macular hole Old age Daughter , of cancer No problems noted. Other Cerebrovascular accident Social History Social History Smoking packs per day: 0.25 Smoking cigarettes per day: 5.0 Years smoked: 20 Smoking pack-years: 5.00 Smoking status: Current every day smoker Tobacco type: cigarettes Second hand tobacco smoke exposure: No Alcohol intake: never Substance use: never Substance use type: does not use Do You Feel Safe in your Home?: Yes Lack of Transportation: No Lack of Food: Never True Current Housing: I Have Housing Concerned About Future Housing: No Difficulty Paying Gas/Electric Bills: No Difficulty Paying for Meds: No Currently Unemployed: No Education: High School Diploma/GED Difficulty w/ Childcare or Family Care: No Living arrangements: with family Occupation/Education: occupation Gender identity (if verbalized by the patient): Female Sexual Orientation (if Verbalized by the Patient): Straight or Heterosexual Comments At time of signature, agree with nursing past medical, surgical, social and family history. There is no relevant family history pertinent to the presenting complaint Exam Narrative: GENERAL: Well-appearing, well-nourished, and in no acute dist
[2024-01-26 11:45] VITALS: BP 130/74; PULSE 89; RESP 18; TEMP 37.1; O2SAT 99
== END 2024-01-26 12:03 | disposition home or self-care (01) ==
PROVIDERS: Emergency Provider Registered Nurse
DX: J32.9 Chronic sinusitis, unspecified (principal); F17.210 Nicotine dependence, cigarettes, uncomplicated; M06.9 Rheumatoid arthritis, unspecified; Z96.651 Presence of right artificial knee joint
CPT/HCPCS: 99213; G0463

== ENCOUNTER 2024-08-30 15:47 | Emergency (ER) | payer OTHER, SELFPAY ==
--- OUTSIDE RECORDS SUMMARY | 2024-08-30 15:50 | XMS_ITS | Clinical Summary ---
Author Organization [facility] Address [address] [place] [address] Care Team Providers Care Model Making Supervisor Name Role Phone Ailyn Blackwell ARCHITECTURAL EXAMINER-FACULTY ADMINISTRATOR Primary Care Provide r Source Comments [facility],non-owned Affiliates and Associated Physician Practices is amultiple site organization consisting of ambulatory clinics and hospital sitesin [place] and [place]. This disclosure is being madepursuant to the Care Everywhere program and may not contain all information available regarding this patient. Last updated 18.[facility] Allergies No known active allergies Medications * Be aware that medications may not be up to date on this document. Alwaysverify current medications with the patient. No known medications Social History Tobacco Use Types Packs/Day Years Used Date Smoking Tobacco: Every Day Smokeless Tobacco: Never Alcohol Use Standard Drinks/Week Comments Not Currently 0 (1 standard drink = 0.6 oz pur e alcohol) Comments Unknown Sex and Gender Information Value Date Recorded Sex Assigned at Not on file Legal Sex Female 4:23 AM MARKETING DATABASE COORDINATOR Gender Identity Not on file Sexual Orientation Not on file Last Filed Vital Signs Vital Sign Reading Time Taken Comments Blood Pressure 126/73 05/18/2019 1:11 PM MARKETING DATABASE COORDINATOR Pulse 80 05/18/2019 1:11 PM MARKETING DATABASE COORDINATOR Temperature 36.8 C (98.2 F) 05/18/2019 11:57 AM MARKETING DATABASE COORDINATOR Respiratory Rate 20 05/18/2019 1:11 PM MARKETING DATABASE COORDINATOR Oxygen Saturation 99% 05/18/2019 1:11 PM MARKETING DATABASE COORDINATOR Inhaled Oxygen Concentration - - Weight 51.7 kg (114 lb) 05/18/2019 11:43 AM MARKETING DATABASE COORDINATOR Height 147.3 cm (4' 10 ) 05/18/2019 11:43 AM MARKETING DATABASE COORDINATOR Body Mass Index 23.83 05/18/2019 11:43 AM MARKETING DATABASE COORDINATOR Plan of Treatment Health Maintenance Due Date Last Done Comments BONE DENSITY TESTING 1960 COLOGUARD (AGES 45-75) - COL ON CA SCREENING 1958 COLON MONITORING 1958 COLONOSCOPY - COLON CA SCREENING 1958 CT COLONOGRAPHY - COLON CA SCREENING 1960 Colorectal Cancer Screening 1958 FIT - COLON CA SCREENING 1958 FLEX SIG - COLON CA SCREENING 1958 LIPID TESTING 1958 HIV SCREENING 1973 HEPATITIS C SCREENING 12/13/1976 DTAP/TDAP/TD VACCINES (1 - Tdap) 1977 PNEUMOCOCCAL VACCINE 50+ (1 of 1 - PCV) 2008 ZOSTER VACCINE (1 of 2) 2008 MAMMOGRAM 02/08/2021 02/08/2019 COVID-19 VACCINE (1 - 2023-2 5 season) 2023 DEPRESSION SCREENING 04/25/2024 INFLUENZA VACCINE (Season Ended) 2024 12/27/2018, 01/23/2018, 02/11/2016 Respiratory Syncytial Virus (RSV) Vaccine Pt: or over 60 yrs (1 - 1-dose 75+ series) 2033 HEPATITIS B VACCINE Aged Out No longe r eligible based on patient's age to complete this topic HIB VACCINE Aged Out No longer eligi ble based on patient's age to complete this topic HPV VACCINE Aged Out No longer eligi ble based on patient's age to complete this topic MENINGOCOCCAL (Group B) VACCINE SHARED DECISION-MAKING Aged Out No longer eligible based on patient's age to complete this topic MENINGOCOCCAL GROUPS A/C/Y/W VACCINE Aged Out No longer eligible b ased on patient's age to complete this topic [place] [address] [place] [address] MEDICAID - OUT OF [place] [address] [place] [address] Care Teams Model Making Supervisor Relationship Specialty Start Date End Date Ailyn Blackwell APRN-CNP PCP - General 12/28/18
--- OUTSIDE RECORDS SUMMARY | 2024-08-30 15:51 | XMS_ITS | Clinical Summary ---
Author Organization [facility] Address [address] [place] [address] Phone Care Team Providers Care Egg Smeller Name Role Phone Unavailable Primary Care Provider Unavailabl e Allergies No known active allergies Medications ondansetron (Zofran) 4 MG TabletIndicatio ns:Bilious vomiting with nausea Take 1 Tab by mouth every 8 hours as needed for Nausea - 1st line. 30 Tab 05/26/2020 Active nortriptyline (PAMELOR) 25 MG Capsule Take 1 Capsule by mouth nightly. 30 Capsule 2 06/03/2020 Active Active Problems Problem Noted Date Diagnosed Date Screening for colon cancer 03/07/2018 Seborrheic keratosis 03/07/2018 Physical exam, annual (Adult) 01/23/2018 Tobacco abuse 01/23/2018 Screening for cervical cancer 01/23/2018 Screening for breast cancer 01/23/2018 Chronic pain of right knee 01/23/2018 Opioid dependence 01/05/2018 Rheumatoid arthritis 01/05/2018 Vasculitis 01/05/2018 Hallux valgus 10/06/2016 History of total right knee replacement 10/07/19 17 Leg length discrepancy 10/06/2016 Immunizations Immunization Administration Dates Next Due Influenza Vaccine 12/26/2018 Influenza Vaccine, Quadrivalent, PF 02/22/2020,0 12/27/2018,01/23/2018 Influenza, Injectable, Quadrivalent 12/26/2018,1 MMR Vaccine 02/22/2020,12/19/2019,07/23/2019 TD VACCINE 04/25/2007 TDAP Vaccine 04/06/2018,01/23/2018 Td (Adult) 04/25/2007 Family History Medical History Relation Name Comments No Known Problems Brother Hypertension Father No Known Problems Maternal Grandmother Heart Disease Mother Hypertension Mother Heart Attack Sister 1 Heart Disease Sister 1 Cancer Sister 2 liver Chronic Obstructive Pulmonary Disease Sister 2 Emphysema Sister 2 Relation Name Status Comments Brother Alive Father Alive Maternal Grandmother Alive Mother Sister 1 Sister 2 Sister 3 Alive Social History Tobacco Use Types Packs/Day Years Used Date Smoking Tobacco: Former Cigarettes 1 44 1 06/09/1973 - 04/08/2018 Smokeless Tobacco: Never Tobacco Cessation:Counseling Given: No Alcohol Use Standard Drinks/Week Comments No 0 (1 standard drink = 0.6 oz pur e alcohol) PHQ-2 Answer Date Recorded Total Score - Questions 1-9 0 04/2020 Sexually Active Control Partners Comments Not Currently Male Comments No Sex and Gender Information Value Date Recorded Sex Assigned at Not on file Legal Sex Female 8:38 PM CDT Gender Identity Not on file Sexual Orientation Not on file 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 Not on file Not on file Not on file Last Filed Vital Signs Vital Sign Reading Time Taken Comments Blood Pressure 142/70 05/28/2020 8:35 AM QUOTE CLERK Pulse 76 05/28/2020 8:35 AM QUOTE CLERK Temperature 36.6 C (97.9 F) 05/28/2020 8:35 AM QUOTE CLERK Respiratory Rate 16 05/28/2020 8:35 AM QUOTE CLERK Oxygen Saturation 99% 05/28/2020 8:35 AM QUOTE CLERK Inhaled Oxygen Concentration - - Weight 48.1 kg (106 lb 1.6 oz) 05/28/2020 8:35 A M QUOTE CLERK Height 147.3 cm (4' 10 ) 05/28/2020 8:35 AM QUOTE CLERK Body Mass Index 22.17 05/28/2020 8:35 AM QUOTE CLERK Plan of Treatment Health Maintenance Due Date Last Done Comments Hepatitis C Virus (HCV) Screening 1958 Cologuard 2008 Immunochemical Fecal Occult Blood 2008 Pneumococcal Immunization (50+ years) (1 of 1 - PCV) 2008 Zoster Immunization (1 of 2) 2008 Colonoscopy 02/15/2022 02/15/2019 Colorectal Cancer Screening 02/15/2022 Influenza Immunization (#1) 12/25/202301/25, 12/27/2018, 12/26/2018, Additional history exists SARS-COV-2 Immunization ( season) 2023 11/28/2021, 02/26/2021, 08/07/2020, Additional history exists Td Immunization Every 10 Years (Adults With 1 Tdap) 04/06/2028 04/06/2018, 01/23/2018, 04/25/2007, Additional history exists Respiratory Syncytial Virus (RSV) Immunization (Adult) (1 - 1-dose 75+ series) 2033 02/15/2019 Mammogram Discontinued 02/08/2019 Hepatitis B Immunization Aged Out No longer eligible based on patient's age to complete this topic Meningococcal Immunization (ACWY) Aged Out No longer eligible based on patient's age to complete this topic Rotavirus Immunization Aged Out No lo nger eligible based on patient's age to complete this topic Procedures Procedure Name Priority Date/Time Associated Diagnosis Comments DANYELL SCREENING BILATERAL DIGITAL W CAD W ROSIE Routine 02/08/2019 8:07 AM CDT Screening mammogram, encounter for from Last 3 Months or Most Recently Relevant to Health Maintenance Results * DANYELL SCREENING BILATERAL DIGITAL W CAD W ROSIE (02/08/2019 8:07 AM CDT) Anatomical Region Laterality Modality breast Bilateral Mammography 02/08/2019 6:51 AM CDT Narrative 02/09/2019 9:49 AM CDT - DANYELL SCREENING BILATERAL DIGITAL W CAD W ROSIE BILATERAL DIGITAL SCREENING MAMMOGRAM 3D/2D WITH CAD WITH MEDIOLATERAL OBLIQUE CRANIOCAUDAL: 02/08/2019 The study was acquired using digital technology and interpreted from soft copy. Current study was also evaluated with ICAD version 7.2. CLINICAL: New baseline. Routine screening. Patient has no complaints. No personal history of cancer. No family history of breast cancer. COMPARISONS: No prior exams were available for comparison. BREAST TISSUE:There are scattered fibroglandular densities in both breasts. FINDINGS: No significant masses, calcifications, or other findings are seen in either breast. IMPRESSION: BI-RAD 1 NEGATIVE There is no mammographic evidence of malignancy. A 1 year screening mammogram is recommended. The patient has been or will be contacted. The patient will be entered into a reminder system with a target due date of 1 year for her next screening exam. Electronically signed by: Tito Booth M.D. /penrad:02/09/2019 09:13:17 Chain Saw Mechanic: Elda Smalls (Bridgette), [facility] letter sent: Normal Exam Reading location: [facility] BI-RADS: 1 Negative Procedure Note Tito Booth MD - 02/09/2019 - DANYELL SCREENING BILATERAL DIGITAL W CAD W ROSIE BILATERAL DIGITAL SCREENING MAMMOGRAM 3D/2D WITH CAD WITH MEDIOLATERAL OBLIQUE CRANIOCAUDAL: 02/08/2019 The study was acquired using digital technology and interpreted from soft copy. Current study was also evaluated with ICAD version 7.2. CLINICAL: New baseline. Routine screening. Patient has no complaints. No personal history of cancer. No family history of breast cancer. COMPARISONS: No prior exams were available for comparison. BREAST TISSUE:There are scattered fibroglandular densities in both breasts. FINDINGS: No significant masses, calcifications, or other findings are seen in either breast. IMPRESSION: BI-RAD 1 NEGATIVE There is no mammographic evidence of malignancy. A 1 year screening mammogram is recommended. The patient has been or will be contacted. The patient will be entered into a reminder system with a target due date of 1 year for her next screening exam. Electronically signed by: Tito Booth M.D. /penrad:02/09/2019 09:13:17 Chain Saw Mechanic: Elda Smalls (Bridgette), [facility] sent: Normal Exam Reading location: [facility] BI-RADS: 1 Negative Ailyn Blackwell COMPUTER SECURITY SPECIALIST, OYSTER WORKER IMG MAMMO ORDERABLES Final Result from Last 3 Months or Most Recently Relevant to Health Maintenance Insurance [place]ICAID [place]
--- OUTSIDE RECORDS SUMMARY | 2024-08-30 15:51 | XMS_ITS | Encounter Summary ---
Author Organization [facility] Address [address] [place] [address] Phone Care Team Providers Care Support Associate Name Role Phone Taqueria Ann MD Primary Care Provider [phone] Encounter Details Date Type Department Care Team (Late st Contact Info) Description 02/03/2021 Transcribe Orders [facility] Central Scheduling [address] [place] [id number] Topher Rodrigues, [facility] [address] [place] [address] Social History Tobacco Use Types Packs/Day Years Used Date Smoking Tobacco: Former Cigarettes 1 44 1 06/09/1973 - 04/08/2018 Smokeless Tobacco: Never Alcohol Use Standard Drinks/Week Comments No 0 [...] file Not on file Not on file documented as of this encounter Plan of Treatment Not on file documented as of this encounter Visit Diagnoses Not on filedocumented in this encounter Additional Health Concerns Assessment Noted Time PHQ-9 Depression Total Score: 0 05/26/19 21 10:00 AM NEEDLE POLISHER documented as of this encounter Care Teams Support Associate Relationship Specialty Start Date End Date Taqueria Ann MD [address] [address] PCP - General Family Medicine 01/23/18 07/25/23 documented as of this encounter
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
--- OUTSIDE RECORDS SUMMARY | 2024-08-30 15:51 | XMS_ITS | Referral Summary ---
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 Author [facility] Worsening(10/2020 11:04 AM CDT) No Suzi Duvall RN Note: Patient will describe how unrelieved pain will be managed. Insurance [facility] CHOICE PLUS CHOICE PLUS Care Teams Software Tester Relationship Specialty Start Date End Date Topher Rodrigues PA [address] [place] [address] PCP - General Family Practice 05/21/19
[2024-08-30 15:54] VITALS: BP 139/78; PULSE 77; RESP 16; TEMP 36.7; O2SAT 97
--- NOTE | 2024-08-30 16:27 | ED.EAR ---
HPI - Ear Problem General Chief complaint: Ear Stated complaint: Right Ear Swelling/Right Eye Problem Time Seen by Provider: 08/30/24 16:28 Source: patient, RN notes reviewed and old records reviewed Mode of arrival: ambulatory Limitations: no limitations History of Present Illness HPI Narrative: 63 year old female presents to [facility] with complaints of right ear pain and swelling with throbbing into her restoration and eye since yesterday. Patient reports that she just feels off. Patient reports no known fevers, chills or sweats, denies any tinnitus, or any decreased hearing from her right ear or any drainage. Patient denies any visual changes or any photophobia or any numbness to face, face symmetrical with no drooping noted. MD Complaint: ear pain Location: right ear Duration: constant Severity: moderate Discharge from ear: Reports no Treatment prior to arrival: oral analgesic (Tylenol and Ibuprofen) Related Data Allergies Allergy/AdvReac Type Severity Reaction Status Date / Time No Known Allergies Allergy Verified 08/30/24 16:04 Review of Systems Review of Systems: CONSTITUTIONAL: Denies fever, chills, or sweats. EYES: Denies visual changes, redness, or discharge. ENT: Denies rhinorrhea, congestion, sore throat, positive for right otalgia which radiates to her restoration and right eye. CARDIOVASCULAR: Denies chest pain, palpitations, or edema. RESPIRATORY: Denies cough or dyspnea. GASTROINTESTINAL: Denies abdominal pain, nausea, vomiting, or diarrhea. GENITOURINARY: Denies dysuria or hematuria. SKIN: Denies rash or itching. MUSCULOSKELETAL: Denies back pain, joint pain, or myalgia. NEUROLOGIC: Denies headache, numbness, or weakness. PSYCHIATRIC: Denies anxiety or depression. All systems reviewed & are unremarkable except as noted in HPI and below PMFSH Past Medical History Medical History Rheumatoid arthritis Fracture of right shoulder delivery delivered Chronic low back pain Surgical History Surgical History History of vascular surgery repair of injury to femoral artery H/O tubal ligation History of back surgery H/O total knee replacement r-knee History of knee surgery 9 right knee surgeries H/O section X4 Family History Family History Mother Hypertension Family history of congestive heart failure Sibling Family history of malignant neoplasm Father , 12/12 at age 93, old age Early stage macular hole Old age Daughter , of cancer No problems noted. Other Cerebrovascular accident Social History Social History Smoking packs per day: 0.25 Smoking cigarettes per day: 5.0 Years smoked: 20 Smoking pack-years: 5.00 Smoking status: Current every day smoker Tobacco type: cigarettes Second hand tobacco smoke exposure: No Alcohol intake: never Substance use: never Substance use type: does not use Do You Feel Safe in your Home?: Yes Lack of Transportation: No Lack of Food: Never True Current Housing: I Have Housing Concerned About Future Housing: No Difficulty Paying Gas/Electric Bills: No Difficulty Paying for Meds: No Currently Unemployed: No Education: High School Diploma/GED Difficulty w/ Childcare or Family Care: No Living arrangements: with family Occupation/Education: occupation Gender identity (if verbalized by the patient): Female Sexual Orientation (if Verbalized by the Patient): Straight or Heterosexual Comments At time of signature, agree with nursing past medical, surgical, social and family history. There is no relevant family history pertinent to the presenting complaint Exam Narrative: GENERAL: Well-appearing, well-nourished, and in no acute distress. HEAD: Normocephalic, atraumatic. EYES: PERRLA and EOMI. ENT: Nares clear, clear rhinorrhea or epistaxis. Mucous membranes moist. Right TM red, Left TM normal with dull light reflex, throat pink with no swelling NECK: Supple.no lymphadenopathy CHEST: Clear to auscultation. No respiratory distress. no acute cough or congestion noted SAO2 97% on room air HEART: Regular rate and rhythm. No murmur heard. Normal peripheral pulses. ABDOMEN: Soft, nontender, nondistended, normal active bowel sounds. EXTREMITIES: Normal range of motion. No edema. SKIN: Warm, dry, no rash. NEURO: No focal deficits. Alert and oriented x3,.denies any dizziness or any facial paraesthesia Course Course Emergency Course: Patient is aware of diagnosis, understands and agrees to treatment plan.? Anticipatory guidance given.? Patient agrees to follow-up as directed and is aware of reasons to seek care at the emergency department. Portions of this record may have been created with voice recognition software Level of Care: Express Care Visit Vital Signs Vital signs: Vital Signs Temperature 36.7 C 08/30/24 15:54 Pulse Rate 77 08/30/24 15:54 Respiratory Rate 16 08/30/24 15:54 Blood Pressure 139/78 08/30/24 15:54 Pulse Oximetry 97 08/30/24 15:54 Oxygen Delivery Room Air 08/30/24 15:54 Temperature 36.7 C 08/30/24 15:54 Pulse Rate 77 08/30/24 15:54 Respiratory Rate 16 08/30/24 15:54 Blood Pressure 139/78 08/30/24 15:54 Pulse Oximetry 97 08/30/24 15:54 Oxygen Delivery Room Air 08/30/24 15:54 Reviewed Medical Decision Making MDM Narrative Medical decision making narrative: Exam findings and imaging show no acute concerns or changes; patient is non-toxic appearing and is in no distress.? Patient is appropriate for outpatient treatment and follow-up Differential Diagnosis Differential Diagnosis: URI. otitis media, otalgia, viral infection,eustachian tube dysfunction Medical Records Medical records reviewed: Yes I reviewed the external patient's medical records. Vital Signs Vital Signs: Vital Signs Temperature 36.7 C 08/30/24 15:54 Pulse Rate 77 08/30/24 15:54 Respiratory Rate 16 08/30/24 15:54 Blood Pressure 139/78 08/30/24 15:54 Pulse Oximetry 97 08/30/24 15:54 Oxygen Delivery Room Air 08/30/24 15:54 Temperature 36.7 C 08/30/24 15:54 Pulse Rate 77 08/30/24 15:54 Respiratory Rate 16 08/30/24 15:54 Blood Pressure 139/78 08/30/24 15:54 Pulse Oximetry 97 08/30/24 15:54 Oxygen Delivery Room Air 08/30/24 15:54 reviewed Critical Care Time Critical Care Time Critical Care Time: No Discharge Plan Discharge Clinical Impression: Right ear pain Otitis media Qualifiers: Otitis media type: serous Chronicity: acute Laterality: right Recurrence: non-recurrent Qualified Code(s): H65.01 - Acute serous otitis media, right ear Patient Disposition: Home Condition: Stable Instructions: Antibiotic Form, Ear Infection (GEN) Additional Instructions: Increase fluids especially juices and water [id number] cough and cold medicine of your choice for your symptoms Steroids as directed--take with food heat to the face 20-30 minutes 4-6 times a day for pain Salt water gargles, throat lozenges or throat sprays as desired Antibiotic as directed--finished the medication Zyrtec Claritin or Cici daily If your symptoms persist, change or worsen significantly before you can contact your personal physician then please, without delay, go to the emergency department for further evaluation. Follow-up with PCP in 7-10 days or sooner if needed Follow up with PCP soon in regards to your blood pressure which is elevated above threshold for referral. Blood pressure above 120/80 may indicate pre-hypertension. 139/78 Patient Language: [place]ian Prescriptions: New cephalexin 500 mg capsule 500 mg PO Q8H Qty: 21 0RF methylprednisolone [Medrol (Candido)] 4 mg tablets,dose pack See Rx Instructions .ROUTE .COMPLEX Qty: 21 0RF Rx Instructions: orally per package directions Follow-up/Referrals: PHYSICIAN,[facility] DIRECTOR [Primary Care Provider] - Stand Alone Forms: Work/School Release IP Time of Disposition: 16:40 Quality [place] Coma Scale Eyes: Open Verbal: Oriented and Alert Motor: Follows Commands [place] Coma Total Score: 15
== END 2024-08-30 16:42 | disposition home or self-care (01) ==
PROVIDERS: Emergency Provider Registered Nurse
DX: H65.01 Acute serous otitis media, right ear (principal); F17.210 Nicotine dependence, cigarettes, uncomplicated; M06.9 Rheumatoid arthritis, unspecified; Z96.651 Presence of right artificial knee joint
CPT/HCPCS: 99213; G0463